=== PATIENT | male | born 1945 | race African-American/Black ===

== ENCOUNTER 2024-01-01 18:21 | Emergency (ER) | payer MEDICARE, OTHER ==
[~2024-01-01] VITALS: Ht 160 cm; Wt 72.1 kg
[2024-01-01 18:38] VITALS: BP 173/94; PULSE 80; RESP 16; TEMP 98.2; O2SAT 99
== END 2024-01-02 02:18 | disposition left against medical advice (07) ==
LOC: ER 18:21
DX: E11.9 Type 2 diabetes mellitus without complications (principal); Z53.21 Procedure and treatment not carried out due to patient leaving prior to being seen by health care provider
CPT/HCPCS: 99281

== ENCOUNTER 2024-01-08 21:31 | Emergency (ER) | payer MEDICARE, OTHER ==
[~2024-01-08] VITALS: Ht 165.1 cm; Wt 74.0 kg
[2024-01-08 21:33] VITALS: O2SAT 95
[2024-01-08 23:25] LABS: BASOPHILS % 0.5 % (0.0-2.0); EOSINOPHILS % 1.4 % (0.0-5.0); HEMATOCRIT. 40.9 % (42.0-52.0); HEMOGLOBIN. 13.7 g/dL (14.0-18.0); LYMPHOCYTES % 23.9 % (20.0-50.0); MEAN CORPUSCULAR HEMOGLOBIN 27.8 pg (28.0-32.0); MEAN CORPUSCULAR HGB CONC 33.5 g/dL (31.0-37.0); MEAN PLATELET VOLUME 7.6 fl (7.4-10.4); NEUTROPHILS % 61.2 % (40.0-76.0); PLATELET 176 x1000/uL (130-400); RED BLOOD CELL COUNT 4.92 mill/uL (4.7-6.1); RED CELL DISTRIBUTION WIDTH 15.1 % (11.6-14.6); WHITE BLOOD COUNT 6.2 x1000/uL (4.5-11.0)
[2024-01-08 23:40] LABS: ALANINE AMINOTRANSFERASE 18 IU/L (10-49); ALBUMIN 4.6 g/dL (3.2-4.8); ASPARTATE AMINOTRANSFERASE 19 IU/L (<34); BILIRUBIN TOTAL 0.6 mg/dL (0.1-1.0); CALCIUM 10.4 mg/dL (8.7-10.4); CARBON DIOXIDE 28 mEq/L (21-32); CHLORIDE 107 mEq/L (98-107); CREATININE 1.7 mg/dL (0.6-1.3); GLUCOSE 241 mg/dL (70-105); POTASSIUM 4.1 mEq/L (3.5-5.1); PROTEIN TOTAL 7.1 g/dL (6.0-8.3); SODIUM 142 mEq/L (136-145); TROPONIN I HIGH SENSITIVITY 15 ng/L (3.0-53); UREA NITROGEN BLOOD 24 mg/dL (9-23)
[2024-01-09 02:00] VITALS: BP 163/97; PULSE 79; RESP 19
== END 2024-01-09 03:02 | disposition home or self-care (01) ==
LOC: ER 21:31
DX: E11.65 Type 2 diabetes mellitus with hyperglycemia (principal); I10 Essential (primary) hypertension
CPT/HCPCS: 36415; 71045; 80053; 84484; 85025; 99284

== ENCOUNTER 2025-03-17 11:27 | Inpatient (IN) | payer MEDICARE, MEDICAID ==
[~2025-03-17] VITALS: Ht 160 cm; Wt 74.4 kg
[~2025-03-17 11:27] MED LIST: AMLO5TAB88 PO; ASPI-1160 PO; FOLI-43 PO; HEPA500015 SUBCUT; HYDR25TA78 PO; INSLIS SUBCUT; KEPP500 PO; LACO100T2 PO; LANTUSUD SUBCUT; LIP40 PO; THIA100T72 PO; TOPUD PO
[2025-03-17] MEDS: SODIUM CHLORIDE 0.9% (SEPSIS BOLUS) IV ONE (11:59)
[2025-03-17] MEDS: PIPERACILLIN/TAZO 3.375G/50ML 50 ML IV ONE (11:59)
[2025-03-17 12:06] LABS: BASOPHILS % 0.4 % (0.0-2.0); EOSINOPHILS % 1.3 % (0.0-5.0); HEMATOCRIT. 42.5 % (42.0-52.0); HEMOGLOBIN. 13.5 g/dL (14.0-18.0); MEAN CORPUSCULAR HEMOGLOBIN 26.6 pg (28.0-32.0); MEAN CORPUSCULAR HGB CONC 31.7 g/dL (31.0-37.0); MEAN CORPUSCULAR VOLUME 83.9 fL (80.0-94.0); MEAN PLATELET VOLUME 7.7 fl (7.4-10.4); MONOCYTES % 10.8 % (2.0-8.0); NEUTROPHILS % 50.5 % (40.0-76.0); PLATELET 202 x1000/uL (130-400); RED BLOOD CELL COUNT 5.06 mill/uL (4.7-6.1); RED CELL DISTRIBUTION WIDTH 15.7 % (11.6-14.6); WHITE BLOOD COUNT 8.2 x1000/uL (4.5-11.0)
[2025-03-17 12:14] LABS: CHLORIDE 105 mEq/L (98-107); POTASSIUM 3.7 mEq/L (3.5-5.1); SODIUM 140 mEq/L (136-145)
[2025-03-17 12:15] LABS: CALCIUM 10.8 mg/dL (8.7-10.4); CARBON DIOXIDE 26 mEq/L (21-32)
[2025-03-17] MEDS: VANCOMYCIN 1G PREMIX 200 ML IV ONE (12:15)
[2025-03-17 12:20] LABS: CREATININE 1.5 mg/dL (0.6-1.3); GLUCOSE 316 mg/dL (70-105); TROPONIN I HIGH SENSITIVITY 14 ng/L (3.0-53); UREA NITROGEN BLOOD 18 mg/dL (9-23)
[2025-03-17 12:22] LABS: ALANINE AMINOTRANSFERASE 24 IU/L (10-49); ALBUMIN 4.1 g/dL (3.2-4.8); ASPARTATE AMINOTRANSFERASE 22 IU/L (<34); BILIRUBIN DIRECT 0.1 mg/dL (<=3.0); BILIRUBIN TOTAL 0.5 mg/dL (0.1-1.0); PROTEIN TOTAL 7.1 g/dL (6.0-8.3)
[2025-03-17 12:23] LABS: LACTIC ACID 3.6 mmol/L (0.4-2.0)
[2025-03-17 12:48] LABS: INR 0.9; PROTHROMBIN TIME 9.9 sec (9.6-11.0)
[2025-03-17] MEDS ORDERED: DOCUSATE SODIUM 100MG CAPSULE PO PRN (15:15)
[2025-03-17] MEDS ORDERED: NA PHOS,M-B/NA PHOS,DI-BA ENEMA 118ML PR PRN (15:15)
[2025-03-17] MEDS ORDERED: INSULIN REGULAR (HUMULIN R) 1000UNITS/10ML VIAL IV NR (15:15)
[2025-03-17] MEDS ORDERED: MAGNESIUM/ALUMINUM HYDROXIDE/SIMETHICONE 30ML UDC PO PRN (15:15)
[2025-03-17] MEDS ORDERED: DEXTROSE 50% WATER 50ML SYRINGE IV PRN (15:15)
[2025-03-17] MEDS ORDERED: ONDANSETRON HCL 4MG/2ML INJ IV PRN (15:15)
[2025-03-17] MEDS ORDERED: GUAIFENESIN 200MG/10ML SUGAR FREE UDC PO PRN (15:15)
[2025-03-17] MEDS ORDERED: LEVETIRACETAM 1,500MG in NACL 100ML PREMIX IV SCH (15:15)
[2025-03-17] MEDS ORDERED: IPRATROPIUM/ALBUTEROL 0.5-3(2.5)MG/3ML NEB HHN PRN (15:15)
[2025-03-17] MEDS ORDERED: ACETAMINOPHEN 325MG TABLET PO PRN ×2 (15:15)
[2025-03-17 17:30] VITALS: BP 149/72; PULSE 75; RESP 16; TEMP 36.5
[2025-03-17] MEDS: BLOOD SUGAR DIAGNOSTIC STRIP TEST SCH (17:48)
[2025-03-17] MEDS: SODIUM CHLORIDE 0.45% 1,000 ML IV SCH (17:53)
[2025-03-17] MEDS: LEVETIRACETAM 1,250 MG in SODIUM CHLORIDE 0.9% 100 ML IV SCH (17:53)
[2025-03-17] MEDS: LACOSAMIDE 100MG TABLET PO SCH (18:03)
[2025-03-17] MEDS: AMLODIPINE 5MG TABLET PO SCH (18:04)
[2025-03-17] MEDS: INSULIN LISPRO 100 UNITS/ML SUBCUT SCH (18:05)
[2025-03-17] MEDS: INSULIN GLARGINE 100 UNITS/ML SUBCUT NR (18:06)
[2025-03-17 20:00] VITALS: BP 128/79; PULSE 91; RESP 20; TEMP 36.8; O2SAT 98
[2025-03-17 20:48] LABS: CLARITY URINE CLEAR (CLEAR); COLOR URINE YELLOW (YELLOW); GLUCOSE URINE TRACE (NEGATIVE); KETONES URINE NEGATIVE (NEGATIVE); LEUKOCYTE ESTERASE URINE NEGATIVE (NEGATIVE); NITRITE URINE NEGATIVE (NEGATIVE); OCCULT BLOOD URINE NEGATIVE (NEGATIVE); PROTEIN URINE NEGATIVE (NEGATIVE); SPECIFIC GRAVITY URINE 1.008 (1.005-1.030); UROBILINOGEN URINE 0.2 E.U./dL (0.2-1.0)
[2025-03-17] MEDS: ENOXAPARIN 40MG/0.4ML SYR SUBCUT SCH (21:00)
[2025-03-17] MEDS: ATORVASTATIN CALCIUM 40MG TABLET PO SCH (21:00)
[2025-03-17 21:14] LABS: BACTERIA URINE NONE SEEN; RBC URINE NONE SEEN /hpf (0-2); SQUAMOUS EPITHELIAL CELL URINE RARE /lpf (RARE/1+); WBC URINE NONE SEEN /hpf (0-2)
[2025-03-17 21:19] LABS: *AMPHETAMINES SCREEN URINE NEGATIVE (NEGATIVE)
[2025-03-17 21:20] LABS: *BARBITURATES SCREEN URINE NEGATIVE (NEGATIVE); *BENZODIAZEPINES SCREEN URINE NEGATIVE (NEGATIVE); *COCAINE SCREEN URINE NEGATIVE (NEGATIVE); CANNABINOID URINE SCREEN NEGATIVE (NEGATIVE); ECSTASY MDMA SCREEN URINE NEGATIVE (NEGATIVE); METHADONE URINE SCREEN NEGATIVE (NEGATIVE); OPIATES URINE SCREEN NEGATIVE (NEGATIVE); PHENCYCLIDINE URINE SCREEN NEGATIVE (NEGATIVE)
[2025-03-17] MEDS: HYDRALAZINE HCL 25MG TABLET PO SCH (22:00)
[2025-03-18] VITALS: BP 166/103; PULSE 86; RESP 20; TEMP 36.8; O2SAT 100
[2025-03-18] MEDS: LABETALOL 5MG/ML 4ML INJ IV NR
[2025-03-18] MEDS: POTASSIUM PHOSPHATE 20 MMOL in DEXT 5% WATER 250 ML IV NR (00:48)
[2025-03-18] MEDS: LORAZEPAM 2MG/ML UD SYRINGE IV PRN (00:57)
[2025-03-18 04:00] VITALS: BP 146/93; PULSE 80; RESP 20; TEMP 36.8; O2SAT 100
[2025-03-18] MEDS: THIAMINE HCL 100MG TABLET PO SCH (09:37)
[2025-03-18] MEDS: FOLIC ACID 1MG TABLET PO SCH (09:37)
[2025-03-18] MEDS: PANTOPRAZOLE SODIUM 40 MG/VIAL IV SCH (09:37)
[2025-03-18] MEDS: ASPIRIN 81MG EC TABLET PO SCH (09:37)
[2025-03-18] MEDS: INSULIN GLARGINE 100 UNITS/ML SUBCUT SCH (10:34)
[2025-03-18] MEDS: SODIUM PHOSPHATE 20 MMOL in DEXT 5% WATER 243.3333 ML IV NR (12:24)
[2025-03-18] MEDS ORDERED: SODIUM CHLORIDE 0.9% 1,000 ML IV SCH (13:30)
[2025-03-18 16:00] VITALS: BP 153/83; PULSE 73; RESP 20; TEMP 36.6; O2SAT 100
[2025-03-18] MEDS: SODIUM CHLORIDE 0.9% 1,000 ML IV ONE (16:19)
[2025-03-18] MEDS ORDERED: CLONIDINE 0.1MG TABLET PO PRN (17:45)
[2025-03-19] MEDS ORDERED: HYDROXYZINE 25MG TABLET PO NR (04:00)
[2025-03-19] MEDS: LORAZEPAM 2MG/ML UD SYRINGE IV NR ×2 (04:15→14:16)
[2025-03-19 08:00] VITALS: BP 146/77; PULSE 111; RESP 17; TEMP 36.3; O2SAT 96
[2025-03-19] MEDS: QUETIAPINE FUMARATE 25MG TABLET PO SCH (09:50)
[2025-03-19] MEDS: LORAZEPAM 2MG/ML UD SYRINGE IV PRN (11:53)
[2025-03-19 12:00] VITALS: BP 180/99; PULSE 106; RESP 19; TEMP 36.5; O2SAT 96
[2025-03-19] MEDS: HALOPERIDOL LACTATE 5MG/ML VIAL IM NR (13:49)
[2025-03-19 16:00] VITALS: BP 167/81; PULSE 91; RESP 16; TEMP 36.4; O2SAT 96
[2025-03-19] MEDS ORDERED: HALOPERIDOL LACTATE 5MG/ML VIAL IM PRN (17:15)
[2025-03-19] MEDS: SODIUM CHLORIDE 0.9% 1,000 ML IV SCH (18:05)
[2025-03-19] MEDS: QUETIAPINE FUMARATE 50MG TABLET PO SCH (21:00)
[2025-03-20 07:58] VITALS: BP 197/107; PULSE 94; RESP 18; TEMP 36.5; O2SAT 97
[2025-03-20] MEDS: CLONIDINE 0.1MG TABLET PO PRN (09:08)
[2025-03-20 12:03] VITALS: BP 184/105; PULSE 100; RESP 18; TEMP 36.4; O2SAT 99
[2025-03-20] MEDS: LORAZEPAM 1MG TABLET PO PRN (12:41)
[2025-03-20] MEDS ORDERED: LORAZEPAM 2MG/ML UD SYRINGE IV PRN (15:45)
[2025-03-20 16:17] VITALS: BP 169/99; PULSE 94; RESP 19; TEMP 36.4; O2SAT 94
[2025-03-20 20:31] VITALS: BP 140/73; PULSE 90; RESP 16; TEMP 36.2; O2SAT 100
[2025-03-20 20:46] LABS: EOSINOPHILS % 2.8 % (0.0-5.0); HEMOGLOBIN. 11.6 g/dL (14.0-18.0); LYMPHOCYTES % 28.5 % (20.0-50.0); MEAN CORPUSCULAR HEMOGLOBIN 26.3 pg (28.0-32.0); MEAN CORPUSCULAR HGB CONC 31.4 g/dL (31.0-37.0); MEAN CORPUSCULAR VOLUME 83.9 fL (80.0-94.0); MEAN PLATELET VOLUME 7.8 fl (7.4-10.4); MONOCYTES % 13.9 % (2.0-8.0); NEUTROPHILS % 53.8 % (40.0-76.0); PLATELET 191 x1000/uL (130-400); RED CELL DISTRIBUTION WIDTH 16.3 % (11.6-14.6); WHITE BLOOD COUNT 5.7 x1000/uL (4.5-11.0)
[2025-03-20 21:06] LABS: POTASSIUM 3.7 mEq/L (3.5-5.1)
[2025-03-20 21:07] LABS: CALCIUM 9.4 mg/dL (8.7-10.4)
[2025-03-20 21:12] LABS: CREATININE 1.8 mg/dL (0.6-1.3)
[2025-03-21] VITALS: BP 155/76; PULSE 80; RESP 16; TEMP 36.9; O2SAT 96
[2025-03-21 04:00] VITALS: BP 160/82; PULSE 88; RESP 19; TEMP 36.4; O2SAT 96
[2025-03-21 07:55] VITALS: BP 120/76; PULSE 91; RESP 19; TEMP 36.4; O2SAT 93
[2025-03-21 11:04] VITALS: BP 151/82; PULSE 68; RESP 20; TEMP 36.6; O2SAT 96
[2025-03-21] MEDS: HALOPERIDOL LACTATE 5MG/ML VIAL IM PRN (15:02)
[2025-03-21 16:02] VITALS: BP 161/94; PULSE 101; RESP 20; TEMP 36.7; O2SAT 94
[2025-03-21 19:58] VITALS: BP 169/74; PULSE 95; RESP 20; TEMP 36.7; O2SAT 99
[2025-03-22] VITALS: BP 210/138; PULSE 99; RESP 20; TEMP 36.4; O2SAT 100
[2025-03-22 03:54] VITALS: BP 156/76; PULSE 88; RESP 20; TEMP 36.4; O2SAT 94
[2025-03-22 08:00] VITALS: BP 135/80; PULSE 85; RESP 18; TEMP 36.2; O2SAT 95
[2025-03-22 12:00] VITALS: BP 175/103; PULSE 84; RESP 20; TEMP 36.6; O2SAT 98
[2025-03-22 16:00] VITALS: BP 164/96; PULSE 101; RESP 22; TEMP 36.3; O2SAT 96
[2025-03-22 20:00] VITALS: BP 169/103; PULSE 84; RESP 20; TEMP 36.6; O2SAT 97
[2025-03-23] VITALS (7 sets, daily range): BP systolic 128–197; BP diastolic 75–114; PULSE 71–98; RESP 16–20; TEMP 36.3–36.4; O2SAT 96–100
[2025-03-23] MEDS: QUETIAPINE FUMARATE 50MG TABLET PO SCH (21:33)
[2025-03-24] VITALS: BP 174/106; PULSE 87; RESP 20; TEMP 36.3; O2SAT 96
[2025-03-24 01:55] VITALS: BP 153/79
[2025-03-24 04:00] VITALS: BP 131/63; PULSE 89; RESP 18; TEMP 35.9; O2SAT 95
[2025-03-24 08:00] VITALS: BP 176/112; PULSE 92; RESP 20; TEMP 37.1; O2SAT 98
[2025-03-24] MEDS ORDERED: LEVETIRACETAM 500MG TABLET PO SCH (10:00)
[2025-03-24 12:00] VITALS: BP 161/101; PULSE 88; RESP 18; TEMP 36.6; O2SAT 98
[2025-03-24] MEDS: LEVETIRACETAM 500MG TABLET PO SCH (12:45)
[2025-03-24] MEDS: LEVETIRACETAM 250MG TABLET PO SCH (12:45)
[2025-03-24] MEDS: ENOXAPARIN 30MG/0.3ML SYR SUBCUT SCH (18:41)
[2025-03-24 20:00] VITALS: BP 156/95; PULSE 82; RESP 19; TEMP 36.8; O2SAT 97
[2025-03-25] VITALS: BP 140/75; PULSE 80; TEMP 36.6
[2025-03-25 04:00] VITALS: BP 145/70; PULSE 82; RESP 20; TEMP 36.9; O2SAT 97
[2025-03-25 08:00] VITALS: BP 163/73; PULSE 84; RESP 20; TEMP 36.6; O2SAT 97
[2025-03-25 16:00] VITALS: BP 136/63; PULSE 117; RESP 18; TEMP 36.8; O2SAT 100
[2025-03-26 04:00] VITALS: BP 190/84; PULSE 94; RESP 19; TEMP 36.4; O2SAT 97
[2025-03-26 08:00] VITALS: BP 140/78; PULSE 80; RESP 20; TEMP 36.5; O2SAT 100
[2025-03-26 12:00] VITALS: BP 179/84; PULSE 85; RESP 19; TEMP 36.7; O2SAT 100
[2025-03-26 14:07] VITALS: BP 142/82; PULSE 80; TEMP 97.8; O2SAT 97
[2025-03-26 16:00] VITALS: BP 99/58; PULSE 99; RESP 19; TEMP 36.3; O2SAT 100
[2025-03-26 20:00] VITALS: BP 155/77; PULSE 86; RESP 19; TEMP 36.7; O2SAT 100
[2025-03-27] VITALS: BP 149/94; PULSE 78; RESP 19; TEMP 36.2; O2SAT 98
[2025-03-27 04:00] VITALS: BP 167/99; PULSE 75; RESP 19; TEMP 36.4; O2SAT 99
[2025-03-27] MEDS: BLOOD SUGAR DIAGNOSTIC STRIP TEST SCH (07:10)
[2025-03-27 08:00] VITALS: BP 154/91; PULSE 74; RESP 18; TEMP 35.9; O2SAT 100
[2025-03-27 12:00] VITALS: BP 153/66; PULSE 100; RESP 22; TEMP 36.1; O2SAT 100
== END 2025-03-27 13:35 | disposition left against medical advice (07) | DRG 92 ==
LOC: ER 11:27 → 7WST 13:53 → EDBEDREQTM 13:54 → EDBEDREQ 13:54 → 7WST 03-18 20:20 → 7EST 03-24 17:29
PROVIDERS: ADMIT Internal Medicine; ATTEND Internal Medicine
DX: G92.8 Other toxic encephalopathy (principal); E87.20 Acidosis, unspecified; N17.9 Acute kidney failure, unspecified; E11.65 Type 2 diabetes mellitus with hyperglycemia; Z20.822 Contact with and (suspected) exposure to COVID-19; Z53.29 Procedure and treatment not carried out because of patient's decision for other reasons; E86.0 Dehydration; E83.39 Other disorders of phosphorus metabolism; N18.9 Chronic kidney disease, unspecified; I13.10 Hypertensive heart and chronic kidney disease without heart failure, with stage 1 through stage 4 chronic kidney disease, or unspecified chronic kidney disease; E11.22 Type 2 diabetes mellitus with diabetic chronic kidney disease; G40.909 Epilepsy, unspecified, not intractable, without status epilepticus; Z78.1 Physical restraint status; Z79.4 Long term (current) use of insulin; Z79.82 Long term (current) use of aspirin
CPT/HCPCS: 36415; 71045; 80048; 80076; 80305; 80339; 81003; 82728; 82962; 83605; 83735; 83880; 83930; 84100; 84145; 84484; 85025; 87426; 93005; 93970; 99291; A4606; J1630; J1650; J1815; J1953; J2060; J2470; J2543; J3370; J3490; J7030; J7050; J7060